=== PATIENT | male | born 1940 | race Caucasian/White ===

== ENCOUNTER 2017-06-08 14:26 | Emergency (ER) | payer MEDICARE, OTHER ==
[~2017-06-08] VITALS: Ht 172.7 cm; Wt 84.5 kg
[~2017-06-08 14:26] MED LIST: ALBU25PO2 INH; BUDE10.2; BUDE10.2 IH; CA C1TAB28 PO; CEPH500T; CEPH500T PO; CHOL2000; CYAN50006; CYAN50006 PO; DEXA1TAB5 PO; DEXL60CA2; DEXL60CA2 PO; GALA24CA; GALA24CA PO; IMMU50VI3 IM; IPRA4AER INH; LISI-167; LISI-167 PO; LOSA25TA5 PO; OMEP-110; OXYC1TAB8 PO; OXYC1TAB9 PO; POLY17PO5 PO; PRED10TA14 PO; PRED5TAB PO; RIVA10TA PO; SOMA5CAR3 IM; TEST100V2 SC; TEST5POW3 IM; Testosterone IM; VIT1TABL67 PO; WARF5TAB7 PO; ZOLP10TA; ZOLP10TA PO; ZOLP10TA5 PO
[2017-06-08] MEDS ORDERED: SODIUM CHLORIDE FLUSH 10ML SYR IVF ONE (15:00)
[2017-06-08] MEDS ORDERED: ASPIRIN 81 MG TABLET CHEW PO ONE (15:00)
[2017-06-08] MEDS ORDERED: ASPIRIN 81 MG TABLET CHEW ONE (15:10)
[2017-06-08 15:31] LABS: ALBUMIN 3.8 g/dL (3.4-5.0); ANION GAP 8 mmol/L (5-15); CALCIUM 9.3 mg/dL (8.5-10.1); CHLORIDE 107 mmol/L (98-107)
[2017-06-08 15:37] LABS: ALANINE AMINOTRANSFERASE 27 U/L (12-78); ALKALINE PHOSPHATASE 105 U/L (45-117); BILIRUBIN,TOTAL 0.4 mg/dL (0.2-1.0); CREATININE 1.11 mg/dL (0.7-1.3); TOTAL PROTEIN 7.9 g/dL (6.4-8.2); TROPONIN I < 0.015 ng/mL (0.000-0.045)
[2017-06-08 15:43] LABS: BASOPHILS # (AUTO) 0.01 x10^3/uL (0-0.1); BASOPHILS % (AUTO) 0 % (0-1); EOSINOPHILS # (AUTO) 0.01 x10^3/uL (0-0.4); EOSINOPHILS % (AUTO) 0 % (1-7); LYMPHOCYTES % (AUTO) 12 % (22-44); MD SCAN; MEAN CORPUSCULAR HEMOGLOBIN 33.2 pg (27.5-34.5); MEAN CORPUSCULAR HGB CONC 33.7 g/dL (33.2-36.2); MEAN CORPUSCULAR VOLUME 98.4 fL (81-97); MEAN PLATELET VOLUME 10.2 fL (7.4-10.4); MONOCYTES # (AUTO) 0.03 x10^3/uL (0.2-0.8); MONOCYTES % (AUTO) 1 % (2-9); NEUTROPHILS # (AUTO) 5.32 x10^3/uL (1.8-6.8); NEUTROPHILS % (AUTO) 88 % (42-75); PLATELET COUNT 234 x10^3/uL (130-400); RED BLOOD COUNT 4.59 x10^6/uL (4.38-5.82); RED CELL DISTRIBUTION WIDTH 14.5 % (9.4-14.8)
[2017-06-08] MEDS ORDERED: GABA300C10 PO (16:00)
[2017-06-08] MEDS ORDERED: SOMA5CAR3 SC (16:00)
[2017-06-08] MEDS ORDERED: OXYC5CAP2 PO (16:01)
[2017-06-08 16:06] LABS: INTERNATIONAL NORMALIZED RATIO 0.9 (0.93-1.1); PROTHROMBIN TIME 9.4 Seconds (9.6-11.5)
[2017-06-08] MEDS ORDERED: OMNIPAQUE 350 MG/ML, 100ML BOTTLE ONE (17:25)
[2017-06-08 17:30] VITALS: BP 161/70
== END 2017-06-08 18:55 | disposition home or self-care (01) ==
LOC: ED 18:18
DX: R07.89 Other chest pain (principal); G89.29 Other chronic pain; M54.9 Dorsalgia, unspecified; I10 Essential (primary) hypertension; J44.9 Chronic obstructive pulmonary disease, unspecified; Z87.891 Personal history of nicotine dependence
CPT/HCPCS: 36415; 71045; 71275; 80053; 84484; 85025; 85379; 85610; 85730; 93005; 99285; Q9967

== ENCOUNTER → 2017-06-25 | Outpatient (CLI) | payer MEDICARE, OTHER ==
[~2017-06-25] MED LIST changes: +GABA300C10 PO; +GADOBUTROL 7.5 MMOL/7.5 ML PFS ONE; +OXYC5CAP2 PO; +REGADENOSON 0.4 MG/5 ML SYRINGE ONE; +SOMA5CAR3 SC
== END | disposition home or self-care (01) ==
LOC: RAD 07:01
PROVIDERS: ATTEND Internal Medicine Cardiovascular Disease
DX: I10 Essential (primary) hypertension (principal); I26.02 Saddle embolus of pulmonary artery with acute cor pulmonale; R06.00 Dyspnea, unspecified; R42 Dizziness and giddiness; R06.02 Shortness of breath
CPT/HCPCS: 70553; 78452; 93017; A9502; A9585; J2785

== ENCOUNTER 2017-07-15 17:58 | Emergency (ER) | payer MEDICARE, OTHER ==
[~2017-07-15] VITALS: Ht 172.7 cm; Wt 82.0 kg
[~2017-07-15 17:58] MED LIST changes: -GADOBUTROL 7.5 MMOL/7.5 ML PFS ONE; -REGADENOSON 0.4 MG/5 ML SYRINGE ONE
[2017-07-15] MEDS ORDERED: NITROGLYCERIN SINGLE TAB 0.4 MG SL PRN (19:30)
[2017-07-15] MEDS ORDERED: ACETAMINOPHEN 500 MG TABLET PO ONE (19:30)
[2017-07-15] MEDS ORDERED: NITROGLYCERIN SINGLE TAB 0.4 MG SL ONE (19:34)
[2017-07-15] MEDS ORDERED: ACETAMINOPHEN 500 MG TABLET ONE (19:34)
[2017-07-15 19:44] LABS: BASOPHILS # (AUTO) 0.05 x10^3/uL (0-0.1); BASOPHILS % (AUTO) 1 % (0-1); EOSINOPHILS # (AUTO) 0.35 x10^3/uL (0-0.4); EOSINOPHILS % (AUTO) 5 % (1-7); LYMPHOCYTES % (AUTO) 26 % (22-44); MD NO; MEAN CORPUSCULAR HEMOGLOBIN 32.6 pg (27.5-34.5); MEAN CORPUSCULAR HGB CONC 33.4 g/dL (33.2-36.2); MEAN CORPUSCULAR VOLUME 97.4 fL (81-97); MEAN PLATELET VOLUME 9.3 fL (7.4-10.4); MONOCYTES # (AUTO) 0.88 x10^3/uL (0.2-0.8); MONOCYTES % (AUTO) 12 % (2-9); NEUTROPHILS % (AUTO) 57 % (42-75); PLATELET COUNT 251 x10^3/uL (130-400); RED BLOOD COUNT 4.22 x10^6/uL (4.38-5.82); RED CELL DISTRIBUTION WIDTH 13.5 % (9.4-14.8)
[2017-07-15 19:52] LABS: ALBUMIN 3.6 g/dL (3.4-5.0); ANION GAP 6 mmol/L (5-15); CALCIUM 8.7 mg/dL (8.5-10.1); CHLORIDE 106 mmol/L (98-107)
[2017-07-15 19:57] LABS: CREATININE 1.12 mg/dL (0.7-1.3); TROPONIN I < 0.015 ng/mL (0.000-0.045)
[2017-07-15 20:55] VITALS: BP 134/66
== END 2017-07-15 20:57 | disposition home or self-care (01) ==
LOC: ED 20:08
DX: R07.2 Precordial pain (principal); I10 Essential (primary) hypertension; J44.9 Chronic obstructive pulmonary disease, unspecified
CPT/HCPCS: 36415; 71045; 80048; 82040; 84484; 85025; 93005; 99285

== ENCOUNTER → 2017-07-20 | Day surgery (SDC) | payer MEDICARE, OTHER ==
[~2017-07-20] VITALS: Ht 172.7 cm; Wt 79.5 kg
[~2017-07-20] MED LIST changes: +AMLO2.5T PO; +BIVALIRUDIN 250 MG ONE; +CALC1TAB72 PO; +FENTANYL PF 100 MCG/2ML ONE; +FLUT9.9S16 HOMEMISC; +HEPARIN 1,000 UNITS/ML, 10ML ONE; +LIDOCAINE 2%, 20ML ONE; +MIDAZOLAM 1 MG/ML, 2ML ONE; +OMEP20TA62 PO; +TICAGRELOR 90 MG TABLET ONE; +VERAPAMIL 2.5 MG/ML, 2ML ONE
[2017-07-20 11:47] VITALS: BP 162/74
[2017-07-20 12:26] LABS: BASOPHILS # (AUTO) 0.02 x10^3/uL (0-0.1); BASOPHILS % (AUTO) 0 % (0-1); EOSINOPHILS # (AUTO) 0.38 x10^3/uL (0-0.4); EOSINOPHILS % (AUTO) 6 % (1-7); LYMPHOCYTES # (AUTO) 1.64 x10^3/uL (1-3.4); LYMPHOCYTES % (AUTO) 24 % (22-44); MD NO; MEAN CORPUSCULAR HEMOGLOBIN 32.4 pg (27.5-34.5); MEAN CORPUSCULAR HGB CONC 33.2 g/dL (33.2-36.2); MEAN CORPUSCULAR VOLUME 97.7 fL (81-97); MEAN PLATELET VOLUME 9.5 fL (7.4-10.4); MONOCYTES # (AUTO) 0.67 x10^3/uL (0.2-0.8); MONOCYTES % (AUTO) 10 % (2-9); NEUTROPHILS # (AUTO) 4.06 x10^3/uL (1.8-6.8); NEUTROPHILS % (AUTO) 60 % (42-75); PLATELET COUNT 239 x10^3/uL (130-400); RED BLOOD COUNT 4.25 x10^6/uL (4.38-5.82); RED CELL DISTRIBUTION WIDTH 13.3 % (9.4-14.8)
[2017-07-20 12:36] LABS: ANION GAP 5 mmol/L (5-15); CALCIUM 8.5 mg/dL (8.5-10.1); CHLORIDE 107 mmol/L (98-107); CREATININE 1.16 mg/dL (0.7-1.3)
== END ==
LOC: CACL 10:39
PROVIDERS: ATTEND Internal Medicine Cardiovascular Disease
DX: I25.10 Atherosclerotic heart disease of native coronary artery without angina pectoris (principal); I10 Essential (primary) hypertension; G47.30 Sleep apnea, unspecified; Z88.8 Allergy status to other drugs, medicaments and biological substances; Z91.040 Latex allergy status; Z90.79 Acquired absence of other genital organ(s); Z88.3 Allergy status to other anti-infective agents; Z85.46 Personal history of malignant neoplasm of prostate
CPT/HCPCS: 36415; 80048; 85025; 93458; 99156; C1894; J1644; J2250; J3010; J3490; Q9967; J0583

== ENCOUNTER → 2018-08-06 | Outpatient (CLI) | payer MEDICARE, OTHER ==
[~2018-08-06] MED LIST changes: +AMLO-150 PO; -AMLO2.5T PO; +AMLO2.5T5 PO; -BIVALIRUDIN 250 MG ONE; +CHLO25TA PO; -FENTANYL PF 100 MCG/2ML ONE; +GALA24CA7 PO; -HEPARIN 1,000 UNITS/ML, 10ML ONE; +LANS30CA PO; -LIDOCAINE 2%, 20ML ONE; +LOSA25TA25 PO; -LOSA25TA5 PO; -MIDAZOLAM 1 MG/ML, 2ML ONE; +ONDA4TAB13 SL; +OXYC-432 PO; -OXYC1TAB9 PO; -RIVA10TA PO; +RIVA10TA2 PO; +TERI2.4P SQ; -TICAGRELOR 90 MG TABLET ONE; -VERAPAMIL 2.5 MG/ML, 2ML ONE; +WARF-36 PO; -WARF5TAB7 PO
== END | disposition home or self-care (01) ==
LOC: CVU 08:47
PROVIDERS: ATTEND Internal Medicine Cardiovascular Disease
DX: I08.0 Rheumatic disorders of both mitral and aortic valves (principal); I10 Essential (primary) hypertension; E78.5 Hyperlipidemia, unspecified
CPT/HCPCS: 0399T; 93306

== ENCOUNTER 2019-01-01 10:17 | Outpatient (CLI) | payer MEDICARE, OTHER | END 2019-01-01 23:59 | disposition home or self-care (01) | LOC: PETCFH 10:17 | PROVIDERS: ATTEND Internal Medicine Gastroenterology | DX: R11.0 Nausea (principal); Z86.010 Personal history of colon polyps | CPT/HCPCS: 78264; A9541 ==

== ENCOUNTER 2019-05-08 08:22 | Outpatient (CLI) | payer MEDICARE, OTHER ==
[~2019-05-08 08:22] MED LIST changes: +REGADENOSON 0.4 MG/5 ML SYRINGE ONE
[2019-05-08] MEDS ORDERED: PRED1POW2 PO (11:54)
== END 2019-05-08 23:59 | disposition home or self-care (01) ==
LOC: CFH 08:22
PROVIDERS: ATTEND Physician Assistant Medical
DX: Z02.9 Encounter for administrative examinations, unspecified (principal)
CPT/HCPCS: J2785

== ENCOUNTER 2019-05-08 09:14 | Inpatient (IN) | payer MEDICARE, OTHER ==
[~2019-05-08] VITALS: Ht 172.7 cm; Wt 89.2 kg
[~2019-05-08 09:14] MED LIST changes: -REGADENOSON 0.4 MG/5 ML SYRINGE ONE
--- NOTE | 2019-05-08 09:41 | NUR ---
FIRST CONTACT WITH PT. PT STATES "I'VE HAD DOUBLE VISION SINCE I WOKE UP AT 0545. I THINK THE DOUBLE VISION IS STARTING TO GO AWAY." PER "HE LOST HIS BALANCE AND IT SOUNDED LIKE HE HAD SOME SLURRED SPEECH" NO C/O WEAKNESS, NO SLURRING OF SPEECH. FACE SYMMETRICAL, NEURO INTACT, SENSATION INTACT, SPEECH CLEAR. PT'S AOX4. RESPS EVEN AND UNLABORED. ALL MONITORS IN PLACE. CALL LIGHT WITHIN REACH. EDMD AT BEDSIDE TO EVALUATE AT THIS TIME.
--- NOTE | 2019-05-08 10:05 | NUR ---
URINAL AT BEDSIDE. PT AWARES OF UA.
--- NOTE | 2019-05-08 10:23 | NUR ---
PT PROVIDED URINE SAMPLE AT THIS TIME. UA SENT.
--- NOTE | 2019-05-08 10:23 | NUR ---
PT TO CT NOW.
[2019-05-08 10:31] LABS: CULTURE INDICATED? NO; MICROSCOPIC NOT IND
[2019-05-08 10:39] LABS: BASOPHILS # (AUTO) 0.03 x10^3/uL (0-0.1); BASOPHILS % (AUTO) 1 % (0-1); EOSINOPHILS # (AUTO) 0.65 x10^3/uL (0-0.4); EOSINOPHILS % (AUTO) 10 % (1-7); LYMPHOCYTES # (AUTO) 1.53 x10^3/uL (1-3.4); LYMPHOCYTES % (AUTO) 23 % (22-44); MD NO; MEAN CORPUSCULAR HEMOGLOBIN 33.6 pg (27.5-34.5); MEAN CORPUSCULAR HGB CONC 33.9 g/dL (33.2-36.2); MEAN CORPUSCULAR VOLUME 99.1 fL (81-97); MONOCYTES # (AUTO) 0.81 x10^3/uL (0.2-0.8); MONOCYTES % (AUTO) 12 % (2-9); NEUTROPHILS # (AUTO) 3.61 x10^3/uL (1.8-6.8); NEUTROPHILS % (AUTO) 54 % (42-75); PLATELET COUNT 215 x10^3/uL (130-400); RED BLOOD COUNT 4.02 x10^6/uL (4.38-5.82); RED CELL DISTRIBUTION WIDTH 13.7 % (9.4-14.8)
[2019-05-08 10:44] LABS: INTERNATIONAL NORMALIZED RATIO 0.92 (0.93-1.1); PROTHROMBIN TIME 9.7 Seconds (9.6-11.5)
[2019-05-08 10:45] LABS: ALBUMIN 3.4 g/dL (3.4-5.0); ANION GAP 5 mmol/L (5-15); CALCIUM 8.8 mg/dL (8.5-10.1); CHLORIDE 110 mmol/L (98-107)
[2019-05-08 10:48] LABS: ALANINE AMINOTRANSFERASE 27 U/L (12-78); ALKALINE PHOSPHATASE 88 U/L (45-117); BILIRUBIN,TOTAL 0.4 mg/dL (0.2-1.0); CREATININE 1.22 mg/dL (0.7-1.3); TOTAL PROTEIN 6.9 g/dL (6.4-8.2)
--- NOTE | 2019-05-08 10:54 | NUR ---
PT BACK TO ROOM FROM CT.
--- NOTE | 2019-05-08 11:38 | NUR ---
PT TO MRI AT THIS TIME.
[2019-05-08] MEDS ORDERED: PRED1POW2 PO (11:54)
--- NOTE | 2019-05-08 12:03 | NUR ---
REPORT GIVEN TO LEYLA JORGE. ALL QUESTIONS ANSWERED.
--- NOTE | 2019-05-08 12:40 | NUR ---
HOSPITALIST AT BEDSIDE AT THIS TIME.
[2019-05-08] MEDS ORDERED: ASPIRIN 81 MG TABLET CHEW PO/NG SCH (13:00)
[2019-05-08] MEDS ORDERED: ACETAMINOPHEN 650 MG/20.3 ML UDC PO PRN (13:00)
[2019-05-08 13:30] VITALS: BP 170/72
[2019-05-08] MEDS ORDERED: ONDANSETRON 2MG/ML, 2ML IVPush PRN (13:30)
[2019-05-08 13:53] VITALS: BP 170/72
[2019-05-08 14:00] VITALS: BP 170/72
[2019-05-08] MEDS ORDERED: CYANOCOBALAMIN 1,000 MCG TABLET PO SCH (18:30)
[2019-05-08] MEDS ORDERED: ZOLPIDEM 5MG TABLET PO SCH (21:00)
[2019-05-08] MEDS ORDERED: ATORVASTATIN 40 MG TABLET PO SCH (21:00)
[2019-05-09 00:28] VITALS: BP 111/62
[2019-05-09] MEDS ORDERED: FLUTICASONE NASAL SPRAY 16GM NAS SCH (09:00)
[2019-05-09] MEDS ORDERED: PREDNISOLONE 1 MG PO SCH (09:00)
[2019-05-09] MEDS ORDERED: CYANOCOBALAMIN 1,000 MCG TABLET PO SCH (09:00)
[2019-05-09] MEDS ORDERED: GALANTAMINE HBR 24 MG PO SCH (09:00)
== END 2019-05-09 06:02 | disposition left against medical advice (07) | DRG 66 ==
LOC: ED 10:14 → EDIP 11:22 → 4WST 13:14
PROVIDERS: ADMIT Emergency Medicine; ATTEND Internal Medicine
DX: I63.9 Cerebral infarction, unspecified (principal); H53.2 Diplopia; G47.30 Sleep apnea, unspecified; G89.29 Other chronic pain; I11.0 Hypertensive heart disease with heart failure; I50.9 Heart failure, unspecified; Z53.29 Procedure and treatment not carried out because of patient's decision for other reasons; Z88.8 Allergy status to other drugs, medicaments and biological substances; Z91.040 Latex allergy status; J44.9 Chronic obstructive pulmonary disease, unspecified; R53.82 Chronic fatigue, unspecified; Z79.891 Long term (current) use of opiate analgesic; Z80.0 Family history of malignant neoplasm of digestive organs; Z80.8 Family history of malignant neoplasm of other organs or systems; Z85.46 Personal history of malignant neoplasm of prostate; Z86.711 Personal history of pulmonary embolism; Z86.73 Personal history of transient ischemic attack (TIA), and cerebral infarction without residual deficits; Z87.891 Personal history of nicotine dependence; Z90.79 Acquired absence of other genital organ(s); Z96.89 Presence of other specified functional implants
CPT/HCPCS: 36415; 70450; 70551; 80053; 81003; 85025; 85610; 85730; 93005; G0378

== ENCOUNTER 2020-05-07 15:35 | Emergency (ER) | payer MEDICARE, OTHER ==
[~2020-05-07] VITALS: Ht 172.7 cm; Wt 95.0 kg
[~2020-05-07 15:35] MED LIST changes: -CALC1TAB72 PO; +CALC1TAB74 PO; -OXYC-432 PO; +OXYC1TAB18 PO; +PRED1POW2 PO
--- NOTE | 2020-05-07 16:19 | NUR ---
ASSUMED CARE OF PATIENT. PATIENT REPORTS HIGH BLOOD PRESSURE AND CENTER CHEST PAIN SINCE YESTERDAY. VS STABLE. EKG DONE. AT BEDSIDE. SENIOR COMPLIANCE ANALYST ON. NSR NOTED. CALL LIGHT IN PLACE. WILL CONTINUE TO MONITOR.
[2020-05-07] MEDS ORDERED: ONDANSETRON ODT 4 MG PO ONE (16:30)
[2020-05-07] MEDS ORDERED: ONDANSETRON ODT 4 MG ONE (16:33)
[2020-05-07 17:05] LABS: BASOPHILS % (AUTO) 1 % (0-1); EOSINOPHILS % (AUTO) 2 % (1-7); LYMPHOCYTES % (AUTO) 17 % (22-44); MEAN CORPUSCULAR HEMOGLOBIN 34.5 pg (27.5-34.5); MEAN CORPUSCULAR HGB CONC 33.5 g/dL (33.2-36.2); MEAN PLATELET VOLUME 9.2 fL (7.4-10.4); MONOCYTES % (AUTO) 12 % (2-9); NEUTROPHILS % (AUTO) 69 % (42-75); PLATELET COUNT 238 x10^3/uL (130-400); RED BLOOD COUNT 4.01 x10^6/uL (4.38-5.82); RED CELL DISTRIBUTION WIDTH 14.1 % (9.4-14.8)
[2020-05-07 17:12] LABS: MD NO
[2020-05-07 17:14] LABS: ALANINE AMINOTRANSFERASE 22 U/L (12-78); ALBUMIN 3.3 g/dL (3.4-5.0); ANION GAP 6 mmol/L (5-15); CALCIUM 9.2 mg/dL (8.5-10.1); CHLORIDE 109 mmol/L (98-107); CREATININE 1.32 mg/dL (0.7-1.3)
[2020-05-07 17:18] LABS: ALKALINE PHOSPHATASE 73 U/L (45-117); BILIRUBIN,TOTAL 0.6 mg/dL (0.2-1.0); D-DIMER 1.74 ug/mlFEU (0.00-0.52); INTERNATIONAL NORMALIZED RATIO 0.94 (0.93-1.1); TOTAL PROTEIN 7.1 g/dL (6.4-8.2); TROPONIN I < 0.015 ng/mL (0.000-0.045)
--- NOTE | 2020-05-07 19:01 | NUR ---
BEDSIDE REPORT FROM LUISITO GOMEZ. PT SITTING IN BED, MAKING STATEMENTS ABOUT NEEDING/ WANTING TO LEAVE. NADN. AT BEDSIDE. PT UPDATED ON POC.
[2020-05-07 19:07] VITALS: BP 166/67
--- NOTE | 2020-05-07 19:07 | NUR ---
DR. LOZA AT BEDSIDE TO UPDATE PT ON POC.
[2020-05-07] MEDS ORDERED: OMNIPAQUE 350 MG/ML, 100ML BOTTLE ONE (23:06)
== END 2020-05-07 19:34 | disposition home or self-care (01) ==
LOC: ED 17:03
DX: R07.2 Precordial pain (principal); R07.89 Other chest pain; R11.0 Nausea; I11.0 Hypertensive heart disease with heart failure; I50.9 Heart failure, unspecified; I45.10 Unspecified right bundle-branch block; K21.9 Gastro-esophageal reflux disease without esophagitis; J44.9 Chronic obstructive pulmonary disease, unspecified; Z88.0 Allergy status to penicillin; Z88.9 Allergy status to unspecified drugs, medicaments and biological substances; Z90.49 Acquired absence of other specified parts of digestive tract; Z86.73 Personal history of transient ischemic attack (TIA), and cerebral infarction without residual deficits; Z90.89 Acquired absence of other organs; Z79.899 Other long term (current) drug therapy
CPT/HCPCS: 36415; 71045; 71275; 80053; 84484; 85025; 85379; 85610; 93005; 99285; Q0162; Q9967

== ENCOUNTER 2020-05-19 18:16 | Emergency (ER) | payer MEDICARE, OTHER ==
[~2020-05-19] VITALS: Ht 172.7 cm; Wt 90.0 kg
[2020-05-19] MEDS ORDERED: ASPIRIN 81 MG TABLET CHEW PO ONE (18:30)
--- NOTE | 2020-05-19 18:40 | NUR ---
PT TO RM FROM TRIAGE AT THIS TIME, PT TO BP, CONT PULSE OX, CARD MONITOR. ATTEMPT AT IV ACCESS BY NURSERY SCHOOL ATTENDANT X2. PT VERBALLY AGGRESSIVE TO RN, YELLING IN RN FACE "IM A SERGIO AGUIRRE, IM BETTER I NEED ANOTHER NURSE. 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 DIRECTOR OF HOME CARE HOSPICE MADE AWARE OF PT REFUSAL FOR THIS RN TO ATTEMPT ANOTHER IV ACCESS. TIMBER TREATING TANK OPERATOR IN TO ATTEMPT US GUIDED PIV
[2020-05-19] MEDS ORDERED: DILTIAZEM 5 MG/ML, 5ML IV ONE (19:00)
[2020-05-19] MEDS ORDERED: OLME20TA27 PO (19:09)
[2020-05-19] MEDS ORDERED: CLON0.1T2 PO (19:09)
[2020-05-19] MEDS ORDERED: ZOLP-413 PO (19:09)
[2020-05-19] MEDS ORDERED: APIX5TAB4 PO (19:09)
[2020-05-19] MEDS ORDERED: ASPIRIN 81 MG TABLET CHEW ONE (19:15)
[2020-05-19] MEDS ORDERED: DILTIAZEM 5 MG/ML, 5ML ONE (19:15)
[2020-05-19 19:16] LABS: BASOPHILS % (AUTO) 0 % (0-1); EOSINOPHILS % (AUTO) 2 % (1-7); LYMPHOCYTES % (AUTO) 16 % (22-44); MEAN CORPUSCULAR HEMOGLOBIN 34.6 pg (27.5-34.5); MEAN CORPUSCULAR HGB CONC 33.8 g/dL (33.2-36.2); MEAN PLATELET VOLUME 9.3 fL (7.4-10.4); MONOCYTES % (AUTO) 6 % (2-9); NEUTROPHILS % (AUTO) 76 % (42-75); PLATELET COUNT 286 x10^3/uL (130-400); RED BLOOD COUNT 4.96 x10^6/uL (4.38-5.82)
[2020-05-19 19:21] LABS: MD NO
[2020-05-19 19:26] LABS: ALBUMIN 4.2 g/dL (3.4-5.0); ANION GAP 4 mmol/L (5-15); CHLORIDE 109 mmol/L (98-107); CREATININE 1.43 mg/dL (0.7-1.3)
[2020-05-19 19:30] LABS: TROPONIN I < 0.015 ng/mL (0.000-0.045)
--- NOTE | 2020-05-19 19:43 | NUR ---
Cardizem dose improved HR. Pt still in A. Fib. VSS. WCTM.
[2020-05-19 20:28] VITALS: BP 132/78
--- NOTE | 2020-05-19 20:30 | NUR ---
PT VSS. DISCUSSED DISCHARGE INSTRUCTIONS WITH PT. PT WANTING TO LEAVE NOW. IV REMOVED. AMBULATORY AT DISCHARGE.
== END 2020-05-19 20:41 | disposition home or self-care (01) ==
LOC: ED 19:30
DX: I48.20 Chronic atrial fibrillation, unspecified (principal); R00.0 Tachycardia, unspecified; I11.0 Hypertensive heart disease with heart failure; I50.9 Heart failure, unspecified; K21.9 Gastro-esophageal reflux disease without esophagitis; J44.9 Chronic obstructive pulmonary disease, unspecified; Z86.73 Personal history of transient ischemic attack (TIA), and cerebral infarction without residual deficits; Z90.89 Acquired absence of other organs; Z95.0 Presence of cardiac pacemaker
CPT/HCPCS: 36415; 71045; 80048; 82040; 84484; 85025; 93005; 96374; 99285